=== PATIENT | male | born 1965 | race Caucasian/White ===

== ENCOUNTER 2018-04-26 16:37 | Inpatient (IN) | payer BC ==
[~2018-04-26] VITALS: Ht 182.9 cm; Wt 79.1 kg
[2018-04-26 17:16] LABS: BASOPHILS # (AUTO) 0.1 /CMM (0.0-0.2); BASOPHILS % (AUTO) 1.1 % (0.0-2.0); EOSINOPHILS % (AUTO) 0.4 % (0.0-6.0); HEMATOCRIT 44 % (39-51); HEMOGLOBIN 14.7 g/dL (13.5-17.5); LYMPHOCYTES # (AUTO) 1.3 /CMM (0.8-4.8); LYMPHOCYTES % (AUTO) 19.9 % (20.0-44.0); MEAN CORPUSCULAR HGB CONC 33 g/dl (31.0-36.0); MEAN CORPUSCULAR VOLUME 93 fL (80-96); MONOCYTES # (AUTO) 0.8 /CMM (0.1-1.30); MONOCYTES % (AUTO) 11.6 % (2.0-12.0); NEUTROPHILS # (AUTO) 4.5 /CMM (1.8-8.9); PLATELET COUNT (AUTO) 211 /CMM (150-450); RED BLOOD CELL COUNT(AUTO) 4.77 MIL/uL (4.5-6.0); WHITE BLOOD COUNT (AUTO) 6.7 K/uL (4.3-11.0)
[2018-04-26 17:18] LABS: CALCIUM, SERUM 8.5 mg/dL (8.5-10.1); CARBON DIOXIDE 28 mmol/L (21-32); CHLORIDE 104 mmol/L (98-107); CREATININE 0.9 mg/dL (0.6-1.3); GLUCOSE 137 mg/dL (74-106); POTASSIUM 4.1 mmol/L (3.5-5.1); SODIUM SERUM 140 mmol/L (136-145); UREA NITROGEN, BLOOD 12 mg/dL (7-18)
--- NOTE | 2018-04-26 17:30 | NUR ---
BIB ra c/o weakness and sob x 2 weeks. Alert and oriented x 4, verbally responsive, and able to make needs known. on room air, breathing evenly, and unlabored. megan on the monitor. Dr. Oden at bedside for eval. kept comfortable, will continue to monitor accordingly.
[2018-04-26 17:31] LABS: B-TYPE NATRIURETIC PEPTIDE 381 PG/ML (0-125)
--- NOTE | 2018-04-26 17:45 | NUR ---
patient wheeled via gurney to CT scan.
--- NOTE | 2018-04-26 17:53 | NUR ---
PATIENT CAME BACK FROM CT.
[2018-04-26] MEDS ORDERED: ASPI-1169 PO (18:30)
[2018-04-26] MEDS ORDERED: HYDR-4354 PO (18:30)
[2018-04-26] MEDS ORDERED: ISOS30TA6 PO (18:30)
[2018-04-26] MEDS ORDERED: LISI-603 PO (18:30)
[2018-04-26] MEDS ORDERED: METO200T49 PO (18:30)
[2018-04-26] MEDS ORDERED: AMLO10TA6 PO (18:30)
[2018-04-26] MEDS ORDERED: ATOR40TA PO (18:30)
[2018-04-26] MEDS ORDERED: CARI250T9 PO (18:30)
[2018-04-26] MEDS ORDERED: METF-440 PO (18:30)
[2018-04-26] MEDS ORDERED: MORP30TA PO (18:30)
[2018-04-26] MEDS ORDERED: LORAZEPAM 1 MG TABLET ONE (19:19)
--- NOTE | 2018-04-26 19:25 | NUR ---
received pt from SAMARA Gilbert. Awaiting admission for weakness, SOB, CP, inability to sleep. Pt is A, O/4, able to move all extremities without difficulty, appears anxious.
[2018-04-26] MEDS ORDERED: LORAZEPAM 1 MG TABLET PO ONE (19:30)
--- NOTE | 2018-04-26 19:34 | NUR ---
endorsed to Carrie PASCUAL for branden.
[2018-04-26 20:00] VITALS: BP 149/87
--- NOTE | 2018-04-26 20:05 | NUR ---
Pt requested for and received a sandwich. Reports he is still anxious. notified. at BS.
--- NOTE | 2018-04-26 20:43 | NUR ---
Pt will be admitted to 320-2. Report given to SAMARA Guy.
--- NOTE | 2018-04-26 20:50 | NUR ---
Pt transported to rm 320-2 by SAMARA Schwartz, via [facility] accompanied by .
[2018-04-26 20:55] VITALS: BP 114/80
--- NOTE | 2018-04-26 20:55 | NUR ---
TELE/RN NOTES RECEIVED PT. FROM ER VIA [facility]. PT. IS AWAKE, ALERT AND ORIENTED X4. BREATHING EVEN AND UNLABORED ON ROOM AIR. NO SOB, RESPIRATORY DISTRESS OR COMPLAINTS OF PAIN NOTED AT THIS TIME. ORIENTED PT. TO ROOM. PLACED EXTERNAL CROP DUSTER HELPER ON PT. CURRENT RHYTHM = SINUS RHYTHM HR 75. PT. WITH RIGHT AC 20 GAUGE IV SALINE LOCK PRESENT, PATENT AND INTACT. PT. FAMILY MEMBER PRESENT AT BEDSIDE. BED LOCKED AND IN LOWEST POSITION, SIDE RAILS UP X3, CALL LIGHT WITHIN REACH, WILL CONTINUE TO MONITOR.
[2018-04-26] MEDS ORDERED: MAG HYDROX/AL HYDROX/SIMETH 30 ML UDC PO PRN (21:00)
[2018-04-26] MEDS ORDERED: ONDANSETRON HCL/PF 4 MG/2 ML VIAL IVP PRN (21:00)
[2018-04-26] MEDS ORDERED: HYDROCODONE/APAP 5/325MG 1 EACH TABLET PO PRN (21:00)
[2018-04-26] MEDS ORDERED: Z GUARD REMEDY 2 OZ OINT TP PRN ×2 (21:00→21:15)
[2018-04-26] MEDS ORDERED: ZOLPIDEM TARTRATE 5 MG TABLET PO PRN (21:00)
[2018-04-26] MEDS ORDERED: ENOXAPARIN SODIUM 40 MG/0.4 ML DISP.SYRIN SQ SCH (21:00)
[2018-04-26] MEDS ORDERED: CARISOPRODOL 250 MG PO SCH (21:00)
[2018-04-26] MEDS ORDERED: MAGNESIUM HYDROXIDE 30 ML UDC PO PRN (21:00)
[2018-04-26] MEDS ORDERED: ACETAMINOPHEN 325 MG TABLET PO PRN (21:00)
[2018-04-26] MEDS: ATORVASTATIN 40 MG TABLET PO SCH (22:26)
[2018-04-26] MEDS: ENOXAPARIN SODIUM 40 MG/0.4 ML DISP.SYRIN SQ SCH (22:28)
[2018-04-26] MEDS: HYDROCODONE/APAP 10/325MG 1 EA TABLET PO PRN (22:29)
[2018-04-27] VITALS: BP 118/76
[2018-04-27 04:00] VITALS: BP 119/78
[2018-04-27] MEDS: HYDROCODONE/APAP 10/325MG 1 EA TABLET PO PRN ×3 (04:31→22:03)
--- NOTE | 2018-04-27 06:12 | NUR ---
TELE/RN NOTES PT. IS LYING IN BED. AWAKE, ALERT AND ORIENTED X4. BREATHING EVEN AND UNLABORED ON ROOM AIR. NO SOB OR RESPIRATORY DISTRESS NOTED AT THIS TIME AND THROUGHOUT SHIFT. NO COMPLAINTS OF CHEST PAIN NOTED. PT. COMPLAINING OF BACK PAIN. PAIN MEDICATION ADMINISTERED TO PT. ORDERED. PT. WITH EXTERNAL SENIOR NUCLEAR MEDICINE TECHNOLOGIST PRESENT AND INTACT, PT. CURRENT RHYTHM = SINUS RHYTHM HR 94. PT. WITH RIGHT AC 20 GAUGE IV SALINE LOCK PRESENT, PATENT AND INTACT. ALL PT. NEEDS MET. BED LOCKED AND IN LOWEST POSITION, SIDE RAILS UP X3, CALL LIGHT WITHIN REACH, WILL ENDORSE TO DAYSHIFT NURSE FOR CONTINUITY OF CARE.
--- NOTE | 2018-04-27 06:40 | NUR ---
TELE/RN NOTES PT. IS GETTING AGITATED, COMPLAINING ABOUT BEING IN THE HOSPITAL STATING IF HE DOESN'T GO OUT TO SMOKE A CIGARETTE HE IS GOING TO LEAVE THE HOSPITAL. EDUCATED PT. ABOUT IMPORTANCE OF STAYING ON THE HOSPITAL FLOOR AND THAT HIS HEART RATE INCREASES WHEN HE IS WALKING. PT. STATES HE IS NO LONGER LIGHTHEADED OR DIZZY AND THAT HE WILL GO OUT IN A WHEELCHAIR. INFORMED CHARGE NURSE. PT. SIGNED SMOKING CONSENT FORM. PT. LEFT THE FLOOR TO SMOKE VIA WHEELCHAIR ESCORTED BY ANIMAL HOSPITAL CLERK.
[2018-04-27 07:17] LABS: BASOPHILS # (AUTO) 0.1 /CMM (0.0-0.2); EOSINOPHILS % (AUTO) 0.8 % (0.0-6.0); HEMATOCRIT 46 % (39-51); HEMOGLOBIN 15.2 g/dL (13.5-17.5); LYMPHOCYTES # (AUTO) 2.5 /CMM (0.8-4.8); LYMPHOCYTES % (AUTO) 26.3 % (20.0-44.0); MEAN CORPUSCULAR HGB CONC 33 g/dl (31.0-36.0); MEAN CORPUSCULAR VOLUME 92 fL (80-96); MONOCYTES # (AUTO) 1.2 /CMM (0.1-1.30); MONOCYTES % (AUTO) 12.2 % (2.0-12.0); NEUTROPHILS # (AUTO) 5.8 /CMM (1.8-8.9); NEUTROPHILS % (AUTO) 59.7 % (43.0-81.0); PLATELET COUNT (AUTO) 231 /CMM (150-450); RED BLOOD CELL COUNT(AUTO) 5.02 MIL/uL (4.5-6.0); WHITE BLOOD COUNT (AUTO) 9.7 K/uL (4.3-11.0)
--- NOTE | 2018-04-27 07:34 | NUR ---
TELE/RN OPENING NOTE THE PATIENT IS RECEIVED IN SITTING UP IN CHAIR. ALERT AND ORIENTED X4. DENIES PAIN AT THIS TIME. RESPIRATION REGULAR AND UNLABORED. IN ROOM AIR AND DENIES SOB. EXTERNAL TELE MONITOR READING IS SR 85. THE PATIENT VERBALIZED WANTING TO GO HOME. THE PATIENT IS EDUCATED THE IMPORTANCE OF WAITING TO SEE A DOCTOR AND THE PATIENT IS ENCOURAGED NOT TO LEAVE THE HOSPITAL AMA. THE PATIENT IS REMINDED TO REMAIN NPO UNTIL SEEN BY A SOCK AND STOCKING IRONER. THE PATIENT SAID " I`LL TRY, I DON`KNOW." VERBAL CUES ARE GIVEN TO KEEP SAFETY AWARENESS HIGH. BED LOW AND LOCKED. SIDE RAILS UP X2. CALL LIGHT WITHIN REACH. WILL CONTINUE TO MONITOR.
[2018-04-27 07:42] LABS: CALCIUM, SERUM 8.9 mg/dL (8.5-10.1); CARBON DIOXIDE 25 mmol/L (21-32); CHLORIDE 102 mmol/L (98-107); GLUCOSE 150 mg/dL (74-106); MAGNESIUM 1.5 mg/dL (1.8-2.4); PHOSPHORUS 3.9 mg/dL (2.5-4.9); POTASSIUM 3.5 mmol/L (3.5-5.1); SODIUM SERUM 139 mmol/L (136-145); UREA NITROGEN, BLOOD 17 mg/dL (7-18)
[2018-04-27 08:00] VITALS: BP 122/75
[2018-04-27 08:00] LABS: CHOLESTEROL 67 mg/dL (<200); HDL CHOLESTEROL 26 mg/dL (40-60); LDL 25 mg/dL (0-99); TRIGLYCERIDES 163 mg/dL (30-150)
[2018-04-27 08:03] VITALS: BP 122/75
[2018-04-27] MEDS ORDERED: ISOSORBIDE MONONITRATE (30MG) 30 MG TAB.SR.24H PO SCH (09:00)
[2018-04-27] MEDS ORDERED: METFORMIN 500 MG TABLET PO SCH (09:00)
--- NOTE | 2018-04-27 09:34 | NUR ---
TELE/RN NOTE CALLED THE PATIENT`S PHARMACY ([facility] [phone]), SPOKE WITH NICO AND VERIFIED PAIN MEDICATIONS: ACCORDING TO NICO THE PATIENT IS ON NORCO 10-325 1 TAB PO Q6HR PRN, MORPHINE ER 30 MG Q12HR AND SOMA 250 MG Q12 HR. ACCORDING TO NICO THE PATIENT DOES NOT HAVE AN ORDER OF NORCO 5/325. PILY FROM [facility] IS MADE AWARE. WILL FOLLOW UP WITH DR JARRETT TOO. Addendum: 04/27/18 at 1055 by RADHA GARCIA RN MS/RN NOTE DR JARRETT IS MADE AWARE OF WHAT NICO FROM [facility] INFORMED REGARDING MEDICATIONS. RECEIVED ORDER FROM DR JARRETT TO DISCONTINUE NORCO 5/325. NOTED AND CARRIED OUT. DR JARRETT GAVE NEW ORDERS OF MORPHINE SULFATE SR 30 MG PO Q12HR AND SOMA 250 MG PO Q 12HR. ALL THE ORDERS ARE READ BACK, VERIFIED. NOTED AND CARRIED OUT. THE PATIENT IS MADE AWARE. [facility] DOES NOT HAVE SOMA 250 MG. PATIENT AND GIRLFRIEND ARE MADE AWARE. GIRLFRIEND WILL PROVIDE FROM HOME.
[2018-04-27] MEDS ORDERED: CARISOPRODOL 350 MG TABLET PO SCH (10:30)
--- NOTE | 2018-04-27 10:57 | NUR ---
TELE/RN NOTE PATIENT WAS SEEN BY DR MCDANIEL. PER DR MCDANIEL THE PATIENT MAY HAVE FOOD AT THIS TIME AND ADMINISTER MEDICATIONS.
[2018-04-27] MEDS: MORPHINE SULFATE SR 30 MG TABLET.SA PO SCH ×2 (11:17→20:32)
[2018-04-27] MEDS: ASPIRIN 81 MG TAB.CHEW PO SCH (11:19)
[2018-04-27] MEDS: METFORMIN 500 MG TABLET PO SCH ×2 (11:19→16:10)
[2018-04-27] MEDS: LISINOPRIL (20MG) 20 MG TABLET PO SCH (11:20)
[2018-04-27] MEDS: ISOSORBIDE MONONITRATE (30MG) 30 MG TAB.SR.24H PO SCH (11:20)
[2018-04-27] MEDS: METOPROLOL SUCCINATE 50 MG TAB.SR.24H PO SCH (11:20)
--- NOTE | 2018-04-27 11:20 | NUR ---
TELE/RN NOTE 0900 DUE MEDICATIONS ARE GIVEN LATE DUE KEEPING PATIENT NPO UNTIL TO BE SEEN BY DR MCDANIEL. THE PATIENT WAS SEEN BY DR MCDANIEL BUT AFTERWARD THE PATIENT WENT TO WALK WITH DEWAXER AND WAS BACK AT 1119 AND THAT`S THE TIME WHEN [address] JARRETT WAS AWARE.
--- NOTE | 2018-04-27 11:26 | NUR ---
TELE/RN NOTE THE PATIENT COMPLAINED OF GENERALIZED BODY RATING 9/10. THE PATIENT DESCRIBED PAIN ACHING AND THAT IT IS HE HAS BEEN HAVING THIS PAIN FOR MANY YEARS. MORPHINE 30 MG PO WAS GIVEN PER ORDER. WILL CONTINUE FOR EFFECTIVENESS.
[2018-04-27] MEDS: Magnesium 1GM/D5W 100ML PREMIX 100 ML IV SCH ×2 (13:53→15:01)
--- NOTE | 2018-04-27 13:53 | NUR ---
TELE/RN NOTE MAGNESIUM 1G IV STARTED LATE DUE TO PATIENT WANTING TO GET THE MEDICATION AFTER CTA.
--- NOTE | 2018-04-27 13:54 | NUR ---
TELE/RN NOTE STILL WAITING FOR CTA. NO PROXIMATE TIME IS GIVEN WHAT TIME CTA WILL BE DONE. THE PATIENT IS EXPLAINED , PATIENT AGREED. MAGNESIUM 1G IV IS STARTED.
[2018-04-27] MEDS ORDERED: METOPROLOL TARTRATE INJ 5 MG/5 ML AMPUL ONE (15:12)
[2018-04-27] MEDS ORDERED: IV NS 0.9% 250 ML IV ONE (15:33)
[2018-04-27] MEDS ORDERED: CT SWABBABLE VALVE TRANS SET 1 EA INFUS.SET MC ONE (15:33)
[2018-04-27] MEDS ORDERED: IOHEXOL-350 100 ML VIAL IV ONE (15:33)
[2018-04-27 16:00] VITALS: BP 126/68
--- NOTE | 2018-04-27 16:10 | NUR ---
TELE/RN NOTE METFORMIN NOT ADMINISTERED DUE TO PATIENT HAD CTA 04/27/18.
--- NOTE | 2018-04-27 18:28 | NUR ---
MS/RN NOTE THE PATIENT ALERT AND ORIENTED X4. IN ROOM AIR AND DENIES SOB. SATURATION IN ROOM AIR AT 97%. RC G 20 PATENT AND SALINE LOCKED. BED LOW AND LOCKED. SIDE RAILS UP X3. CALL LIGHT WITHIN REACH. WILL ENDORSE TO LAMPS TESTER AND INSPECTOR.
--- NOTE | 2018-04-27 19:30 | NUR ---
RN NOTES RECEIVED PT. AWAKE ON BED, A/OX4, AMBULATORY, SR ON TELE MONITOR HR-71, DENIES PAIN AT THIS TIME, NO SOB, CALL LIGHT WITHIN REACH, [id number], CONTINUE TO MONITOR
[2018-04-27 20:00] VITALS: BP 114/71
[2018-04-27] MEDS: ENOXAPARIN SODIUM 40 MG/0.4 ML DISP.SYRIN SQ SCH (20:31)
[2018-04-27] MEDS ORDERED: CARISOPRODOL 250 MG PO SCH (21:00)
[2018-04-27] MEDS: ATORVASTATIN 40 MG TABLET PO SCH (22:03)
--- NOTE | 2018-04-27 22:05 | NUR ---
RN NOTS COMPLAINED OF GENERALIZED PAIN. NORCO 10/325MG PO GIVEN ORDERED, V/S STABLE
[2018-04-27] MEDS ORDERED: ALBUTEROL FS 2.5 MG/0.5 ML VIAL.NEB ONE (22:29)
--- NOTE | 2018-04-27 23:07 | NUR ---
RN NOTES PT ASKED FOR SLEEPING PILL- AMBIEN 5MG PO GIVEN ORDERED, V/S STABLE
[2018-04-28] VITALS: BP 127/78
[2018-04-28 04:00] VITALS: BP 120/80
--- NOTE | 2018-04-28 06:29 | NUR ---
RN NOTES AWAKE, DENIES PAIN, NO SOB.,MORNING CARE RENDERED, CALL LIGHT WITHIN REACH, [id number], PT. NEEDS ATTENDED
--- NOTE | 2018-04-28 07:20 | NUR ---
TELE/RN OPENING NOTE THE PATIENT IS RECEIVED IN BED. PATIENT IS AWAKE, ALERT AND ORIENTED X4 AND ABLE TO MAKE NEEDS KNOWN VERBALLY. DENIES PAIN AT THIS TIME. IN ROOM AIR AND DENIES SOB. RESPIRATION REGULAR AND UNLABORED. SR 76 ON EXTERNAL TELE MONITOR. PATIENT REMAINS NPO SINCE MIDNIGHT. THE PATIENT IN STABLE CONDITION. LFA G 20 PATENT AND SALINE LOCKED. BED LOW AND LOCKED. SIDE RAILS UP X3. CALL LIGHT WITHIN REACH. WILL CONTINUE TO MONITOR.
[2018-04-28 07:27] LABS: CALCIUM, SERUM 8.6 mg/dL (8.5-10.1); MAGNESIUM 1.7 mg/dL (1.8-2.4)
[2018-04-28 08:00] VITALS: BP 110/74
[2018-04-28] MEDS ORDERED: REGADENOSON 0.4 MG/5 ML DISP.SYRIN IVP ONE (08:00)
[2018-04-28] MEDS: METFORMIN 500 MG TABLET PO SCH ×2 (09:00→16:25)
--- NOTE | 2018-04-28 10:29 | NUR ---
TELE/RN NOTE RECEIVED CARDIAC DIET ORDER FROM DR JARRETT. THE ORDER IS READ BACK, VERIFIED. NOTED AND CARRIED OUT. ALSO, PER DR JARRETT OK TO GIVE 0900 MEDICATIONS AND PRN MEDICATIONS.
[2018-04-28 10:40] VITALS: BP 138/83
[2018-04-28] MEDS: LISINOPRIL (20MG) 20 MG TABLET PO SCH (10:41)
[2018-04-28] MEDS: METOPROLOL SUCCINATE 50 MG TAB.SR.24H PO SCH (10:41)
[2018-04-28] MEDS: ASPIRIN 81 MG TAB.CHEW PO SCH (10:41)
[2018-04-28] MEDS: MORPHINE SULFATE SR 30 MG TABLET.SA PO SCH (10:41)
[2018-04-28] MEDS: ISOSORBIDE MONONITRATE (30MG) 30 MG TAB.SR.24H PO SCH (10:42)
--- NOTE | 2018-04-28 10:49 | NUR ---
TELE/RN NOTE METFORMIN NOT ADMINISTERED DUE TO PATIENT HAD CTA 04/27/18. NO S/S HYPERGLYCEMIA.
[2018-04-28] MEDS: HYDROCODONE/APAP 10/325MG 1 EA TABLET PO PRN (11:26)
--- NOTE | 2018-04-28 11:27 | NUR ---
TELE/RN NOTE THE PATIENT COMPLIANT OF GENERALIZED PAIN 4/10. MORPHINE 30 MG GIVEN EARLIER. REST, REPOSITIONING IS DONE BUT THE PATIENT STILL HAS PAIN 4/10. NORCO 10/325 1 TAB PO GIVEN. RESPIRATION RATE IS 19. VITALS STABLE. WILL CONTINUE TO MONITOR.
[2018-04-28 12:00] VITALS: BP 124/84
--- NOTE | 2018-04-28 12:26 | NUR ---
TELE/RN NOTE THE PATIENT VERBALIZED NORCO BEING EFFECTIVE AND RATED PAIN 0/10. VITAL SIGNS ARE WNL.
[2018-04-28] MEDS: Magnesium 1GM/D5W 100ML PREMIX 100 ML IV SCH ×2 (12:46→13:59)
[2018-04-28 16:00] VITALS: BP 121/72
--- NOTE | 2018-04-28 16:32 | NUR ---
TELE/RN NOTE MADE DR MCDANIEL AWARE OF [place] RESULT AND DR MCDANIEL SAID "OK TO DISCHARGE THE PATIENT, TELL DR JARRETT TO GIVE DISCHARGE ORDER."
--- NOTE | 2018-04-28 17:00 | NUR ---
TELE/RN NOTE DR JARRETT IS MADE AWARE OF DR MCDANIEL CLEARING THE PATIENT TO GO HOME. WAITING FOR DISCHARGE ORDER.
--- NOTE | 2018-04-28 18:18 | NUR ---
TELE/RN CLOSING NOTE THE PATIENT ALERT AND ORIENTED X4. DENIES SOB. IN ROOM AIR AND SATURATION IS AT 98%. DENIES PAIN. LFA G 20 PATENT AND SALINE LOCKED. BED LOW AND LOCKED. SIDE RAILS UP X2. CALL LIGHT WITHIN REACH. WILL ENDORSE TO PLATE WORKER HELPER.
--- NOTE | 2018-04-28 19:30 | NUR ---
MS HEAD CASHIER NOTE PT DISCHARGED IN STABLE CONDITION, A&O X4, NO SIGNS OF SOB OR DISTRESS. CURRENT VS:108/74, 82,98.6, 18. 98% ON RA. DISCHARGE TEACHING WITH PATIENT DONE WITH VERBALIZATION OF UNDERSTANDING. ALL BELONGINGS ACCOUNTED AND SIGNED FOR. AT BEDSIDE AND PT LEFT VIA PERSONAL VEHICLE.
== END 2018-04-28 19:35 | disposition home or self-care (01) | DRG 303 ==
LOC: ER 16:43 → TELE 21:24
PROVIDERS: ADMIT Internal Medicine; ATTEND Internal Medicine
DX: I25.10 Atherosclerotic heart disease of native coronary artery without angina pectoris (principal); F11.20 Opioid dependence, uncomplicated; I10 Essential (primary) hypertension; E78.5 Hyperlipidemia, unspecified; I25.2 Old myocardial infarction; E83.42 Hypomagnesemia; F17.200 Nicotine dependence, unspecified, uncomplicated; G89.29 Other chronic pain; Z88.8 Allergy status to other drugs, medicaments and biological substances; Z79.82 Long term (current) use of aspirin; Z79.84 Long term (current) use of oral hypoglycemic drugs; K21.9 Gastro-esophageal reflux disease without esophagitis; Z82.49 Family history of ischemic heart disease and other diseases of the circulatory system; E11.65 Type 2 diabetes mellitus with hyperglycemia
CPT/HCPCS: 36415; 70450-TC; 71045-TC; 75574; 80048-TC; 80061-TC; 83735-TC; 83880; 84100-TC; 84484-TC; 85025-TC; 85730-TC; 87081-TC; 93307-TC; A4606; A9502; G0378; G0480; J1650; J2785; J3475; J3490; J7050; Q9967; Z7610

== ENCOUNTER 2018-12-21 19:10 | Emergency (ER) | payer BC ==
[~2018-12-21] VITALS: Ht 177.8 cm; Wt 87.1 kg
[~2018-12-21 19:10] MED LIST: AMLO10TA7 PO; ASPI-1169 PO; ATOR40TA PO; CARI250T9 PO; HYDR-4354 PO; ISOS30TA6 PO; LISI-603 PO; METF-440 PO; METO200T49 PO; MORP30TA PO
--- NOTE | 2018-12-21 19:42 | NUR ---
BIB FOR C/O ABD PAIN N/V X 2 WKS. HAS SEEN HIS PCP W/ PENDING LAB RESULTS.
[2018-12-21] MEDS ORDERED: MORPHINE SULFATE INJ 4 MG/ML DISP.SYRIN ONE (19:45)
[2018-12-21] MEDS ORDERED: ONDANSETRON HCL/PF 4 MG/2 ML VIAL ONE (19:45)
[2018-12-21 19:59] LABS: BASOPHILS # (AUTO) 0.1 /CMM (0.0-0.2); BASOPHILS % (AUTO) 0.8 % (0.0-2.0); EOSINOPHILS % (AUTO) 2.2 % (0.0-6.0); HEMATOCRIT 44 % (39-51); HEMOGLOBIN 14.7 g/dL (13.5-17.5); LYMPHOCYTES # (AUTO) 1.9 /CMM (0.8-4.8); LYMPHOCYTES % (AUTO) 21.7 % (20.0-44.0); MEAN CORPUSCULAR HGB CONC 34 g/dl (31.0-36.0); MEAN CORPUSCULAR VOLUME 94 fL (80-96); MONOCYTES # (AUTO) 0.6 /CMM (0.1-1.30); MONOCYTES % (AUTO) 6.4 % (2.0-12.0); NEUTROPHILS % (AUTO) 68.9 % (43.0-81.0); PLATELET COUNT (AUTO) 218 /CMM (150-450); RED BLOOD CELL COUNT(AUTO) 4.65 MIL/uL (4.5-6.0); WHITE BLOOD COUNT (AUTO) 8.6 K/uL (4.3-11.0)
[2018-12-21] MEDS ORDERED: IV NS 0.9% 1,000 ML BAG IV ONE (20:00)
[2018-12-21] MEDS ORDERED: ONDANSETRON HCL/PF 4 MG/2 ML VIAL IVP ONE (20:00)
[2018-12-21] MEDS ORDERED: MORPHINE SULFATE INJ 2 MG/ML DISP.SYRIN IV ONE (20:00)
[2018-12-21 20:08] LABS: CREATININE 0.9 mg/dL (0.6-1.3); POTASSIUM 4.6 mmol/L (3.5-5.1)
[2018-12-21 20:14] LABS: BILIRUBIN,DIRECT 0.1 mg/dL (0.0-0.2); BILIRUBIN,TOTAL 0.3 mg/dL (0.2-1.0); TOTAL PROTEIN, SERUM 7.2 g/dL (6.4-8.2)
[2018-12-21 21:46] LABS: APPEARANCE,URINE Clear (CLEAR); BILIRUBIN,URINE Negative (NEGATIVE); BLOOD, URINE Negative Ery/uL (NEGATIVE); COLOR,URINE Yellow (YELLOW); KETONES,URINE Negative (NEGATIVE); LEUKOCYTE ESTERASE ,URINE Negative (NEGATIVE); NITRITE, URINE Negative (NEGATIVE); PROTEIN,URINE Negative (NEGATIVE); UGLUCOSE Negative (NEGATIVE); UROBILINOGEN,URINE 0.2 EU/dL (0.2)
--- NOTE | 2018-12-21 21:54 | NUR ---
Patient discharged to home in stable condition. Written and verbal after care instructions given. Patient verbalizes understanding of instruction.IV removed. Catheter intact and site benign. Pressure and 4x4 applied to site. No bleeding noted.Pt ambulatory with a steady gait
[2018-12-21 21:55] VITALS: BP 134/85
== END 2018-12-21 21:55 | disposition home or self-care (01) ==
LOC: ER 19:17
DX: N20.0 Calculus of kidney (principal); R10.11 Right upper quadrant pain; R11.2 Nausea with vomiting, unspecified; I25.10 Atherosclerotic heart disease of native coronary artery without angina pectoris; I10 Essential (primary) hypertension; E11.9 Type 2 diabetes mellitus without complications; Z95.5 Presence of coronary angioplasty implant and graft; Z98.890 Other specified postprocedural states; Z79.82 Long term (current) use of aspirin; Z88.8 Allergy status to other drugs, medicaments and biological substances
CPT/HCPCS: 36415; 74176; 76705; 80048; 80076; 81001; 83690; 85025; 85730; 87086; 96361; 96374; 96375; 99284; J2270; J2405; J7030; 81000-TC